=== PATIENT | male | born 2000 | race Two or more races ===

== ENCOUNTER 2020-01-29 07:32 | Emergency (ER) | payer OTHER ==
[~2020-01-29] VITALS: Ht 172.7 cm; Wt 56.7 kg
[2020-01-29 07:44] VITALS: Ht 172.7 cm; Wt 56.7 kg
[2020-01-29 08:32] LABS: BASOPHIL % 1.9 % (0-2); PLATELET COUNT 239 x10^3mcL (130-400); RED CELL DISTRIBUTION WIDTH 12.8 % (11.5-14.5)
[2020-01-29 09:01] LABS: ALBUMIN 4.6 g/dL (3.4-5.0); ALKALINE PHOSPHATASE 51 U/L (46-116); ALT/SGPT 28 U/L (16-63); AST/SGOT 18 U/L (15-37); BILIRUBIN TOTAL 0.7 mg/dL (0.20-1.00); CARBON DIOXIDE 20.8 mmol/L (21-32); CHLORIDE SERUM 102 mmol/L (98-107); CREATININE SERUM 0.9 mg/dL (0.7-1.3); GFR1 > 60 mL/min; GLUCOSE SERUM 159 mg/dL (74-106); LIPASE 71 IU/L (73-393); POTASSIUM SERUM 3.6 mmol/L (3.5-5.1); SODIUM SERUM 139 mmol/L (136-145); TOTAL PROTEIN, SERUM 7.7 g/dL (6.4-8.2)
[2020-01-29 09:02] LABS: microscopic required? NO
[2020-01-29 09:07] LABS: urine erythrocyte NEGATIVE (NEGATIVE)
[2020-01-29 09:19] LABS: AMPHETAMINE QUAL UR NONE DETECTED (See below)
[2020-01-29 09:19] LABS: CALCIUM 9.7 mg/dL (8.5-10.1)
[2020-01-29 10:39] VITALS: BP 130/79
== END 2020-01-29 10:40 | disposition home or self-care (01) ==
LOC: ED 07:32
PROVIDERS: Emergency Medicine
DX: F12.99 Cannabis use, unspecified with unspecified cannabis-induced disorder (principal); F90.9 Attention-deficit hyperactivity disorder, unspecified type; F17.210 Nicotine dependence, cigarettes, uncomplicated; Z71.6 Tobacco abuse counseling
CPT/HCPCS: J1630; J2060; J3490; J7030; Q0092